=== PATIENT | male | born 1995 | race Hispanic/Latino ===

== ENCOUNTER 2017-04-17 01:23 | Emergency (ER) | payer MEDICAID ==
[2017-04-17] MEDS ORDERED: IPRATROPIUM/ALBUTEROL 0.5/3 MG 3 ML AMPUL.NEB INHALATION ONE (01:46)
[2017-04-17] MEDS ORDERED: ALBUTEROL HFA 1 INH INHALER INHALATION ONE (02:14)
[2017-04-17] MEDS ORDERED: ALBUTEROL 0.083% 2.5 MG/3 ML VIAL.NEB INHALATION ONE (02:14)
[2017-04-17] MEDS ORDERED: predniSONE 10 MG TABLET PO ONE (02:14)
--- NOTE | 2017-04-17 02:17 | ER PHYSICIAN DOCUMENTATION ---
Physician Documentation [facility] Name:Richard Thomas Age:21 yrs Sex:Male :1995 Arrival Date:04/17/2017 Time:01:23 Bed1 Private MD:[facility] ED AmandaErasmo Disposition: 04/17 02:06 Critical Care: not applicable. sc Disposition: 04/17/17 02:08 Discharged to Home/Self Care. Impression: Asthma with Acute Exacerbation. - Condition is Good. - Discharge Instructions: ASTHMA, Acute (Adult), INHALER USE. - Prescriptions for albuterol sulfate 90 mcg/actuation Inhalation HFA aerosol inhaler - inhale 2 puff by INHALATION route every 4 hours as needed; 1 Cartridge. Advair Diskus 500- 50 mcg/Dose Inhalation Disk with Device - inhale 1 puff by INHALATION route every 12 hours; 1 packet. Prednisone 20 mg Oral Tablet - take 2 tablet by ORAL route once daily for 5 days; 10 tablet. - Medical Reconciliation form form. - Follow up: [facility] Katharine; When: 4- 6 days; Reason: Recheck today's complaints. - Problem is an acute exacerbation. - Symptoms have improved. HPI: 01:59 This 21 yrs old Male presents to ER via Walk In with complaints of Shortness sc Of Breath. 01:59 The patient has shortness of breath at rest. Onset: The symptom(s)/episode sc began/occurred 1 week(s) ago. Duration: The symptoms are continuous, and are steadily getting worse. The patient's shortness of breath is aggravated by out of albuterol, ran out of advair few months ago. Associated signs and symptoms: Pertinent negatives:. The patient has experienced similar episodes in the past, multiple times. Historical: - Allergies: No known drug Allergies; - Home Meds: 1. not taking prescribed advair 2. "out of" rescue inhaler and nebulizer medication - PMHx: Asthma; - PSHx: NA; - Tetanus: unknown. - Ebola Screening: : No symptoms or risks identified at this time. . - Immunization history: Flu Vaccine None Flu Vaccine. - Social history: Smoking status: Patient states was never smoker of tobacco. Patient uses alcohol occasionally. Patient/guardian denies using street drugs. ROS: 02:03 Constitutional: Negative for fever, chills, and weight loss. sc Eyes: Negative for injury, pain, redness, and discharge. ENT: Negative for injury, pain, and discharge. Neck: Negative for injury, pain, and swelling. Cardiovascular: Negative for chest pain, palpitations, and edema. Abdomen/GI: Negative for abdominal pain, nausea, vomiting, diarrhea, and constipation. Back: Negative for injury and pain. Skin: Negative for injury, rash, and discoloration. 02:03 Neuro: Negative for headache, weakness, numbness, tingling, and seizure. sc 02:03 Respiratory: Positive for shortness of breath, wheezing. Exam: Constitutional: This is a well developed, well nourished patient who is awake, alert, and in no acute distress. Head/Face: Normocephalic, atraumatic. Eyes: Pupils equal round and reactive to light, extra-ocular motions intact. Lids and lashes normal. Conjunctiva and sclera are non-icteric and not injected. Cornea within normal limits. Periorbital areas with no swelling, redness, or edema. ENT: Nares patent. No nasal discharge, no septal abnormalities noted. Tympanic membranes are normal and external auditory canals are clear. Oropharynx with no redness, swelling, or masses, exudates, or evidence of obstruction, uvula midline. Mucous membranes moist. Neck: Trachea midline, no thyromegaly or masses palpated, and no cervical lymphadenopathy. Supple, full range of motion without nuchal rigidity, or vertebral point tenderness. No meningismus. Chest/axilla: Normal chest wall appearance and motion. Nontender with no deformity. No lesions are appreciated. Abdomen/GI: Soft, non-tender, with normal bowel sounds. No distension or tympany. No guarding or rebound. No evidence of tenderness throughout. Back: No spinal tenderness. No costovertebral tenderness. Full range of motion. MS/ Extremity: Pulses equal, no cyanosis. Neurovascular intact. Full, normal range of motion, negative Homans's, calves equal bilaterally. 02:04 Neuro: Awake and alert, GCS 15, oriented to person, place, time, and situation. sc Cranial nerves II-XII grossly intact. Motor strength 5/5 in all extremities. Sensory grossly intact. Cerebellar exam normal. Normal gait. 02:04 Cardiovascular: Rate: normal, Rhythm: regular. 02:04 Respiratory: mild respiratory distress is noted, Respirations: tachypnea, that is mild, Breath sounds: wheezing, that is moderate. Vital Signs: 01:30 BP 119 / 72; Pulse 93; Resp 20; Temp 98.8(TE); Pulse Ox 90% on R/A; Weight 61.23 kg; nf Height 5 ft. 8 in. (172.72 cm); Pain 0/10; 02:10 BP 121 / 74; Pulse 104; Resp 14; Pulse Ox 95% on R/A; Pain 0/10; nf 01:30 Body Mass Index 20.53 (61.23 kg, 172.72 cm) nf MDM: 01:53 Patient medically screened. sc 02:05 Differential diagnosis: asthma. Antibiotic administration: Not indicated. Data sc reviewed: vital signs, nurses notes, and as a result, I will continue to observe the patient. Data interpreted: Pulse oximetry: on room air is 93 %. Medication response: The patient's symptoms have improved. Response to treatment: the patient's symptoms have markedly improved after treatment, the patient's condition has returned to base line, peak flow from 150 to 350, instructed in PEF, rescue inhaler, steroids, advair and follow up at [facility]3]. Dispensed Medications: 01:38 Drug: DuoNeb (Albuterol 2.5 mg, Atrovent 0.5 mg); 3 ml; Route: Nebulizer; nf 01:51 Follow up: Response: Marked relief of symptoms nf 02:07 Drug: predniSONE 40 mg; Route: PO; nf 02:08 Follow up: Response: Medication administered at discharge. nf 02:07 Drug: Albuterol 2.5 mg; Route: Inhalation; nf 02:08 Follow up: Response: Marked relief of symptoms nf 02:08 Drug: Albuterol HFA Inhaler 2 puffs; Route: Inhalation; nf 02:08 Follow up: Response: Pharmacy closed - take home med pack nf Signatures: Mahnaz Solomon RN RN nf Erasmo Patel MD MD ak
--- NOTE | 2017-04-17 02:17 | ER NURSING DOCUMENTATION ---
Nurse's Notes [facility] Name:Richard Thomas Age:21 yrs Sex:Male :1995 Arrival Date:04/17/2017 Time::23 Bed1 Private MD:[facility] Diagnosis:Asthma with Acute Exacerbation Presentation: 04/17 01:28 Presenting complaint: Patient states: asthma exacerbation, sudden onset, 30 minutes nf [employer]; states he is out of home nebulizer medication as well as out of rescue inhaler and has not taken advair in several months. Transition of care: patient was not received from another setting of care. Notified ED Physician of patient's arrival and CC Dr. Patel notified. :28 Acuity: SU 3 nf :28 Method Of Arrival: Walk In nf Triage Assessment: :28 General: Appears uncomfortable, well nourished, well groomed, Behavior is pleasant. nf Pain: Denies pain. Respiratory: Airway is patent Respiratory effort is even, labored, Respiratory pattern is regular, able to speak in short complete sentences Breath sounds with wheezes bilaterally. Reports shortness of breath at rest since 30 minutes prior to arrival Onset: The symptoms/episode began/occurred suddenly, the patient has moderate shortness of breath. Historical: - Allergies: No known drug Allergies; - Home Meds: 1. not taking prescribed advair 2. "out of" rescue inhaler and nebulizer medication - PMHx: Asthma; - PSHx: NA; - Tetanus: unknown. - Ebola Screening: : No symptoms or risks identified at this time. . - Immunization history: Flu Vaccine None Flu Vaccine. - Social history: Smoking status: Patient states was never smoker of tobacco. Patient uses alcohol occasionally. Patient/guardian denies using street drugs. Screenin:54 Infectious Disease Risk None. Abuse screen: Denies threats or abuse. Nutritional nf screening: No deficits noted. Assessment: :28 See Triage Assessment done by same RN. Cardiovascular: Rhythm is regular. nf 01:52 Reassessment: Patient states feeling better. Patient states symptoms have improved. nf significant improvement in lung sounds, now with mild end expiratory wheezes. Vital Signs: :30 BP 119 / 72; Pulse 93; Resp 20; Temp 98.8(TE); Pulse Ox 90% on R/A; Weight 61.23 kg; nf Height 5 ft. 8 in. (172.72 cm); Pain 0/10; 02:10 BP 121 / 74; Pulse 104; Resp 14; Pulse Ox 95% on R/A; Pain 0/10; nf 01:30 Body Mass Index 20.53 (61.23 kg, 172.72 cm) Vitals: 01:35 Peak flow readin liters/min. nf 01:51 Peak flow readin liters/min. ED Course: 01:24 Patient arrived in ED. em2 01:25 [facility] is Private Physician. em2 01:28 Mahnaz Solomon, RN is Primary Nurse. nf 01:28 Arm band placed on Bed in low position Call Light in Reach HOB Elevated Side rails up nf x1. Family accompanied patient. 01:28 Family accompanied patient. nf 01:28 Pulse Ox - RN Monitoring Only. Door closed. Noise minimized. Lights dimmed. Moved to private room. Verbal reassurance given. Pillow given. 01:29 Triage completed. nf 01:53 Erasmo Patel MD is Attending Physician. hi 01:54 Valuables Remains with patient. nf 02:07 [facility] is Referral Physician. sc Administered Medications: 01:38 Drug: DuoNeb (Albuterol 2.5 mg, Atrovent 0.5 mg); 3 ml; Route: Nebulizer; nf 01:51 Follow up: Response: Marked relief of symptoms nf 02:07 Drug: predniSONE 40 mg; Route: PO; nf 02:08 Follow up: Response: Medication administered at discharge. nf 02:07 Drug: Albuterol 2.5 mg; Route: Inhalation; nf 02:08 Follow up: Response: Marked relief of symptoms nf 02:08 Drug: Albuterol HFA Inhaler 2 puffs; Route: Inhalation; nf 02:08 Follow up: Response: Pharmacy closed - take home med pack Outcome: 02:08 Discharge ordered by . sc 02:14 Discharged to home ambulatory, with family. nf 02:14 Condition: improved 02:14 Discharge Assessment: Patient awake, alert and oriented x 3. No cognitive and/or functional deficits noted. Patient verbalized understanding of disposition instructions. 02:14 Discharge instructions given to patient, family, Instructed on discharge instructions, follow up and referral plans. medication usage, Demonstrated understanding of instructions, Prescriptions given X 3, prescriptions for albuterol and advair and prednisone; sent home with albuterol inhaler and peak flow meter 02:15 Patient left the ED. 04/18 10:25 Discharge F/U Call: Spoke with: patient. Have you made a f/u appointment? yes lp Signatures: Mahnaz Solomon RN RN Monica Castillo RN RN Erasmo Patel MD MD [facility], [place] 2
== END 2017-04-17 02:16 | disposition home or self-care (01) ==
LOC: ER 01:23
DX: J45.901 Unspecified asthma with (acute) exacerbation (principal)
CPT/HCPCS: 94640; 99284; J7512; J7611; J7613; J7620